=== PATIENT | male | born 1980 | race Caucasian/White ===

== ENCOUNTER 2018-01-28 01:07 | Emergency (ER) | payer OTHER ==
[2018-01-28 01:41] VITALS: BMI 29.9
--- NOTE | 2018-01-28 01:43 | ED PDOC ---
Arrival/HPI - General Time Seen by Provider: 01/28/18 01:34 Historian: Patient - History of Present Illness Narrative History of Present Illness (Text): 01/28/18 01:40 Gilbert Park is a 37 year old male, with no significant past medical history, who presents to the Emergency department complaining of flank pain. Patient states he has been experiencing right-sided flank pain radiating to his right groin/testicle for the past 2 hours. Patient reports associated nausea. Patient denies any fever, chills, chest pain, shortness of breath, vomiting, diarrhea, neck pain, headache, dizziness, or any other complaints. Symptom Onset: Gradual Symptom Course: Unchanged Activities at Onset: Light Context: Home Past Medical History - Provider Review Nursing Documentation Reviewed: Yes Family/Social History - Physician Review Nursing Documentation Reviewed: Yes Family/Social History: Unknown Family HX Allergies/Home Meds Allergies/Adverse Reactions: Allergies No Known Allergies Allergy (Verified 01/28/18 01:41) Review of Systems - Physician Review All systems were reviewed & negative as marked: Yes - Review of Systems Constitutional: Normal. absent: Fevers Eyes: Normal ENT: Normal Respiratory: Normal. absent: SOB, Cough Cardiovascular: Normal. absent: Chest Pain Gastrointestinal: Nausea. absent: Diarrhea Genitourinary Male: absent: Hematuria, Urinary Output Changes Musculoskeletal: Back Pain (+right flank pain) Skin: Normal. absent: Rash Neurological: Normal. absent: Headache, Dizziness Endocrine: Normal Hemo/Lymphatic: Normal Psychiatric: Normal Physical Exam Vital Signs Reviewed: Yes Vital Signs Temp Pulse Resp BP Pulse Ox 01/28/18 03:17 98.2 F 75 18 132/66 99 Temperature: Afebrile Blood Pressure: Normal Pulse: Regular Respiratory Rate: Normal Appearance: Positive for: Well-Appearing, Non-Toxic, Comfortable Pain Distress: None Mental Status: Positive for: Alert and Oriented X 3 - Systems Exam Head: Present: Atraumatic, Normocephalic Pupils: Present: PERRL Extroacular Muscles: Present: EOMI Conjunctiva: Present: Normal Mouth: Present: Moist Mucous Membranes Neck: Present: Normal Range of Motion Respiratory/Chest: Present: Clear to Auscultation, Good Air Exchange. No: Respiratory Distress, Accessory Muscle Use Cardiovascular: Present: Regular Rate and Rhythm, Normal S1, S2. No: Murmurs Abdomen: No: Tenderness, Distention, Peritoneal Signs Genitourinary Male: Present: Normal External Genitalia. No: Testicle Tenderness , Testicle Swelling Back: Present: Normal Inspection Upper Extremity: Present: Normal Inspection. No: Cyanosis, Edema Lower Extremity: Present: Normal Inspection. No: Edema Neurological: Present: GCS=15, CN II-XII Intact, Speech Normal Skin: Present: Warm, Dry, Normal Color. No: Rashes Psychiatric: Present: Alert, Oriented x 3, Normal Insight, Normal Concentration Medical Decision Making ED Course and Treatment: 01/28/18 01:40 Impression: 37 year old male complaining of right-sided flank pain radiating to groin/back and nausea. Plan: -- CT Abdomen and Pelvis w/o contrast -- US Duplex Testes -- Labs -- Urinalysis -- IV fluids -- Toradol -- Zofran -- Reassess and disposition Progress Notes: 01/28/18 03:55 CT Abdomen and Pelvis shows: Abdomen pelvis: Mild right hydronephrosis and hydroureter, secondary to a 4 mm obstructing calculus at the right vesicoureteral junction, image 86. Unremarkable liver, gallbladder, pancreas, spleen, adrenals and left kidney. Normal caliber aorta. Normal appendix. No bowel obstruction. No free fluid or free air. IMPRESSION: Right-sided obstructive uropathy. US Duplex Testes shows: Small right hydrocele and right-sided varicocele.Both testes are symmetric in size and homogeneous in echotexture, with appropriate flow, and no active evidence of torsion. 4 mm left epididymal head cyst/spermatocele. Small left hydrocele. IMPRESSION: 1. No testicular torsion. 2. Small bilateral hydroceles and right-sided varicocele. 01/28/18 05:06 On re-evaluation, patient feels better and is in no acute distress. I have discussed the results and plan with the patient, who expresses understanding. Patient in agreement with plan to be discharged home. Patient is stable for discharge. Patient was instructed to follow up with physician or return if symptoms worsen or new concerning symptoms arise. - Lab Interpretations Lab Results: 01/28/18 02:10 01/28/18 02:10 Lab Results 01/28/18 02:10: WBC 7.2, RBC 5.64, Hgb 14.5, Hct 43.2, MCV 76.6 L, MCH 25.7, MCHC 33.6, RDW 13.8, Plt Count 241, MPV 10.1 01/28/18 02:10: Sodium 144, Potassium 4.3, Chloride 103, Carbon Dioxide 27, Anion Gap 19, BUN 12, Creatinine 1.0, Est GFR ( Amer) > 60, Est GFR (Non- Af Amer) > 60, Random Glucose 136 H, Calcium 9.3, Total Bilirubin 0.4, AST 28, ALT 32, Alkaline Phosphatase 63, Total Protein 7.9, Albumin 4.6, Globulin 3.3, Albumin/Globulin Ratio 1.4 - RAD Interpretation Radiology Orders: 01/28/18 01:45 ABD & PELVIS W/O PO OR IV CONT [CT] Stat 01/28/18 01:46 TESTES DUPLEX COMPLETE [US] Stat - Medication Orders Current Medication Orders: Discontinued Medications Sodium Chloride (Sodium Chloride 0.9%) 1,000 mls @ 999 mls/hr IV .Q1H1M STA Stop: 01/28/18 02:45 Last Admin: 01/28/18 02:17 Dose: Not Given Non-Admin Reason: Patient Refused Ketorolac Tromethamine (Toradol) 30 mg IVP ONCE ONE Stop: 01/28/18 01:46 Last Admin: 01/28/18 02:22 Dose: 30 mg MAR Pain Assessment Document 01/28/18 02:22 CAST (Rec: 01/28/18 02:[address] Pain Reassessment Is this a pain reassessment? No Sleep Is patient sleeping during reassessment? No Presence of Pain Presence of Pain Yes Pain Scale Used Pain Scale Used Numeric Location Left, Right or Bilateral Right Pain Location Body Site Abdomen Groin Description Description Constant Intensity of Pain at present 8 Pain Behavior Facial Grimacing Aggravating Factors Changing Position Alleviating Factors/Management Medication Techniques Alleviating Factors Medication IVP Administration Document 01/28/18 02:22 [email or web address] (Rec: 01/28/18 02:[address] ) Charges for Administration # of IVP Administrations 1 Ondansetron HCl (Zofran Inj) 4 mg IVP ONCE ONE Stop: 01/28/18 01:46 Last Admin: 01/28/18 02:22 Dose: 4 mg IVP Administration Document 01/28/18 02:22 [email or web address] (Rec: 01/28/18 02:[address]-[facility]- [facility]) Charges for Administration # of IVP Administrations 1 - Scribe Statement The provider has reviewed the documentation as recorded by the Racquelibbenitez Conte Provider Scribe Attestation: All medical record entries made by the Scribe were at my direction and personally dictated by me. I have reviewed the chart and agree that the record accurately reflects my personal performance of the history, physical exam, medical decision making, and the department course for this patient. I have also personally directed, reviewed, and agree with the discharge instructions and disposition. Disposition/Present on Arrival - Present on Arrival Any Indicators Present on Arrival: No - Disposition Have Diagnosis and Disposition been Completed?: Yes Diagnosis: Renal colic Disposition: HOME/ ROUTINE Disposition Time: 04:52 Patient Plan: Discharge Patient Problems: Current Active Problems Problem Status Onset Renal colic Acute Condition: GOOD Discharge Instructions (ExitCare): Renal Colic (DC) Additional Instructions: Drink plenty of liquids/take meds as prescribed/follow up with the urologist this week/any recurrent severe pains return to the emergency room Prescriptions: Tamsulosin [Flomax] 0.4 mg PO DAILY #15 cap traMADol/Acetaminophen [Ultracet 325 MG-37.5 MG] 1 tab PO Q6 PRN #12 tab PRN Reason: Pain Referrals: Izaiah Zimmer MD [Staff Provider] - Follow up with primary
[2018-01-28] MEDS ORDERED: Sodium Chloride 0.9% 1,000 ML IV STA (01:45)
[2018-01-28 02:28] LABS: HEMOGLOBIN 14.5 g/dL (14.0-18.0); MEAN CELL VOLUME 76.6 fl (80.0-105.0); MEAN CORPUSCULAR HEMOGLOBIN 25.7 pg (25.0-35.0); MEAN CORPUSCULAR HGB CONC 33.6 g/dl (31.0-37.0); MEAN PLATELET VOLUME 10.1 fl (7.0-11.0); RBC 5.64 10^6/uL (3.5-6.1); RED CELL DISTRIBUTION WIDTH 13.8 % (11.5-14.5); WHITE BLOOD COUNT 7.2 10^3/ul (4.5-11.0)
[2018-01-28 02:35] LABS: ALB/GLOB RATIO 1.4 (1.1-1.8); ALBUMIN 4.6 g/dL (3.0-4.8); ALT/SGPT 32 U/L (7-56); AST/SGOT 28 U/L (17-59); BLOOD UREA NITROGEN 12 mg/dL (7-21); CALCIUM 9.3 mg/dL (8.4-10.5); GFR AFRICAN-AMERICAN > 60; GFR NON-AFRICAN AMERICAN > 60
[2018-01-28 03:17] VITALS: BP 132/66; O2SAT 99
[2018-01-28 05:14] VITALS: PULSE 77; RESP 19; TEMP 98
--- NOTE | 2018-01-28 10:23 | CT ---
Date of service: 01/28/2018 PROCEDURE: CT Abdomen and Pelvis with Oral contrast. HISTORY: right flank pain COMPARISON: None. TECHNIQUE: Contiguous axial images of the abdomen and pelvis. . Coronal and Sagittal reformats generated. Radiation dose: Total exam DLP = 760.95 mGy-cm. This CT exam was performed using one or more of the following dose reduction techniques: Automated exposure control, adjustment of the mA and/or kV according to patient size, and/or use of iterative reconstruction technique. FINDINGS: LOWER THORAX: Liver is upper limits of normal measuring just over 18 cm in CC dimension. LIVER: Unremarkable. No gross lesion or ductal dilatation. GALLBLADDER AND BILE DUCTS: Gallbladder is incompletely distended which in part accounts for thick-walled appearance. No evidence of intraluminal gallbladder calculi. PANCREAS: Unremarkable. No mass. No ductal dilatation. SPLEEN: Unremarkable. No splenomegaly. ADRENALS: No adrenal lesions. . KIDNEYS AND URETERS: Kidneys demonstrate relatively symmetric size. There is approximately performed mm calculus which appears be located either within the intramural portion of the right UVJ or in the posterior aspect of the right posterior aspect of the lumen of the urinary bladder itself. There is [id number] right-sided hydronephrosis. No other renal calculi. BLADDER: See above discussion for additional details regarding nephrolithiasis. Urinary bladder incompletely distended which presumably in part accounts thick-walled appearance. Muscular hypertrophy may contribute. REPRODUCTIVE: Prostate gland measures approximately 3.5 cm in transverse dimension. Prostatic calcifications are present. APPENDIX: . The appendix some contains a small phlebolith within the tip on. The tip measures approximately 9 mm however no obvious inflammatory changes seen within the adjacent mesenteric. The remaining appendix exhibits small smaller caliber measuring up to 8 mm. Clinic correlation with history physical exam and laboratory values to exclude the possibility of an early acute appendicitis. BOWEL: Evaluation of the bowel is somewhat limited due to the lack of oral contrast material. Stomach is distended with liquid debris and air. Visualized loops of small bowel normal contour and caliber. No evidence of acute mechanical small bowel obstruction. No evidence of colonic mural wall thickening. PERITONEUM: Unremarkable. No fluid collection. No free air. . Note made of of mild localized on ventral wall hernia containing unobstructed loops of bowel. LYMPH NODES: Unremarkable. No enlarged lymph nodes. VASCULATURE: Unremarkable. No aortic aneurysm. BONES: No fracture or destructive lesion. OTHER FINDINGS: None. IMPRESSION: 4 mm calculus which appears be located in the intramural portion of the right UVJ versus or possibly within the right posterior inferior margin of the urinary bladder lumen itself. Mild to moderate right-sided hydronephrosis. Bladder wall thickening likely due to incomplete distention and muscular hypertrophy however cystitis not excluded. See above discussion for additional details end findings. .
--- NOTE | 2018-01-28 12:30 | US ---
Date of service: 01/28/2018 HISTORY: right testicular pain TECHNIQUE: Realtime sonography through the scrotum with color and doppler flow. COMPARISON: None Available. FINDINGS: RIGHT TESTICLE: Measures 5.2 x 2.4 x 3.5 cm. Normal echotexture and flow. RIGHT EPIDIDYMIS: Epididymal head measures 1.4 x 0.8 x 1.5 cm. Grossly unremarkable appearance with normal flow. LEFT TESTICLE: Measures 4.8 x 2.2 x 3.5 cm. Normal echotexture and flow. LEFT EPIDIDYMIS: Epididymal head measures 0.8 x 0.7 x 1.8 cm. . There is a small cystic or spermatocele measuring approximately 4 mm x 3 mm x 5 mm. Epididymis exhibits normal flow. HYDROCELE: Bilateral hydroceles VARICOCELE: Right-sided varicocele OTHER FINDINGS: None. IMPRESSION: Bilateral hydroceles and right-sided varicocele. Small left epididymal cyst/spermatocele
== END 2018-01-28 05:14 | disposition home or self-care (01) ==
LOC: ED 01:07
DX: N23 Unspecified renal colic (principal)
CPT/HCPCS: 74176; 80053; 85027; 93975; 96374; 96375; 99283; J1885; J2405